=== PATIENT | male | born 1970 ===

== ENCOUNTER 2021-11-05 04:42 | Day surgery (SDC) | payer OTHER ==
[2021-11-02 12:37] VITALS: BMI 28.2
[2021-11-05 10:45] VITALS: TEMP 97.5
[2021-11-05 11:26] VITALS: BP 118/90; PULSE 68
== END 2021-11-05 11:24 | disposition home or self-care (01) ==
LOC: JASU-ENDO 04:42
PROVIDERS: ATTEND Internal Medicine Gastroenterology
PROC: 0DBP8ZX Excision of Rectum, Via Natural or Artificial Opening Endoscopic, Diagnostic (ICD-10-PCS; principal; 2021-11-05 10:45)
DX: Z12.11 Encounter for screening for malignant neoplasm of colon (principal); K62.1 Rectal polyp
CPT/HCPCS: 88305-TC